=== PATIENT | male | born 1960 | race Caucasian/White ===

== ENCOUNTER 2016-09-04 09:05 | Emergency (ER) | payer MEDICARE ==
[2016-09-04 10:12] LABS: ABSOLUTE BASOPHILS # (AUTO) 0.1 10^3/uL (0.0-0.2); ABSOLUTE EOSINOPHILS # (AUTO) 0.3 10^3/uL (0.0-0.6); ABSOLUTE LYMPHOCYTES (AUTO) 1.3 10^3/uL (0.5-4.7); ABSOLUTE MONOCYTES (AUTO) 0.8 10^3/uL (0.1-1.4); ABSOLUTE NEUT (AUTO) 7.1 10^3/uL (1.7-8.2); BASOPHILS % (AUTO) 0.9 % (0-2); EOSINOPHILS % (AUTO) 3.5 % (0-6); HEMATOCRIT 27.6 % (37.9-51.0); HEMOGLOBIN 9.1 g/dL (13.5-17.0); HGB HCT DIFFERENCE -0.3; LYMPHOCYTES % (AUTO) 13.7 % (13-45); MEAN CORPUSCULAR HEMOGLOBIN 26.6 pg (27.0-33.4); MEAN CORPUSCULAR HGB CONC 32.9 g/dL (32.0-36.0); MEAN CORPUSCULAR VOLUME 81 fl (80-97); MONOCYTES % (AUTO) 8.7 % (3-13); RED BLOOD COUNT 3.42 10^6/uL (4.35-5.55); RED CELL DISTRIBUTION WIDTH 14.9 % (11.5-14.0); SEGMENTED NEUTROPHILS % (AUTO) 73.2 % (42-78); WHITE BLOOD COUNT 9.8 10^3/uL (4.0-10.5)
[2016-09-04 11:29] VITALS: BP 124/65
[2016-09-04 11:41] LABS: ALANINE AMINOTRANSFERASE 31 U/L (21-72); ALBUMIN 3.4 g/dL (3.5-5.0); ALKALINE PHOSPHATASE 485 U/L (38-126); ANION GAP 12 (5-19); ASPARTATE AMINO TRANSFERASE 21 U/L (17-59); BILIRUBIN,TOTAL 0.2 mg/dL (0.2-1.3); BLOOD UREA NITROGEN 19 mg/dL (7-20); CALCIUM 9.3 mg/dL (8.4-10.2); CARBON DIOXIDE 26 mmol/L (22-30); CHLORIDE 102 mmol/L (98-107); CREATININE RESULT 1.42 mg/dL (0.52-1.25); GLUCOSE 82 mg/dL (75-110); POTASSIUM 4.8 mmol/L (3.6-5.0); SODIUM 139.8 mmol/L (137-145); TOTAL PROTEIN 7.1 g/dL (6.3-8.2)
--- NOTE | 2016-09-04 12:18 | ER Document Report ---
ED General - General Chief Complaint: Shortness Of Breath Stated Complaint: SHORTNESS OF BREATH,DIZZY Mode of Arrival: Ambulatory Notes: 56 yr old male who was noted ot have anemia transfused on friday presents with complaitns of continued weakness. pt denies any blood in stool or vomit. denies any fevers or chills. Patient was given 1 unit and noted to have a hemoglobin 7.7 patient had colonoscopy 6 years ago which noted a small ulcer TRAVEL OUTSIDE OF THE [place] IN LAST 30 DAYS: No - HPI Onset: Last week Onset/Duration: Persistent Quality of pain: No pain Severity: Mild Pain Level: Denies Associated symptoms: Weakness Exacerbated by: Denies Relieved by: Denies Similar symptoms previously: Yes Recently seen / treated by doctor: Yes - Related Data Allergies/Adverse Reactions: azithromycin [Azithromycin] Allergy (Intermediate, Verified 09/04/16 09:12) Home Medications: Current Home Medications Acetaminophen [Tylenol Extra Strength] 500 mg PO Q4HP PRN 09/04/16 [History] Ascorbic Acid [Vitamin C 500 mg Tablet] 500 mg PO DAILY 09/04/16 [History] Bupropion HCl [Wellbutrin Xl 300mg 24hr Tablet] 300 mg PO DAILY 09/04/16 [ History] Cholecalciferol (Vitamin D3) [Vitamin D3 2000 unit Tablet] 2,000 unit PO DAILY 09/04/16 [History] Diclofenac Sodium [Voltaren] 1 applic TOP DAILY 09/04/16 [History] Docusate Sodium [Colace 100 mg Capsule] 100 mg PO BID 09/04/16 [History] Gabapentin [Neurontin 100 mg Capsule] 200 mg PO QHS 09/04/16 [History] Hydrocodone/Acetaminophen [Vera 7.5-325 mg Tablet] 1 tab PO Q6HP PRN 09/04/16 [ History] Insulin Aspart [Novolog Insulin (Aspart) 100 unit/mL] 0 units PUMP ASDIR PRN 12/16 [History] Levothyroxine Sodium 125 mcg PO DAILY 09/04/16 [History] Losartan Potassium [Cozaar 50 mg Tablet] 50 mg PO DAILY 09/04/16 [History] Metoclopramide HCl [Reglan 10 mg Tablet] 10 mg PO BID 09/04/16 [History] Ondansetron HCl [Zofran 8 mg Tablet] 8 mg PO TIDP PRN 09/04/16 [History] Pantoprazole Sodium [Protonix] 40 mg PO DAILY 09/04/16 [History] Ropinirole HCl [Requip] 0.5 mg PO QHS 09/04/16 [History] Sildenafil Citrate [Sildenafil] 20 mg PO ASDIR PRN 09/04/16 [History] Venlafaxine HCl [Venlafaxine HCl ER] 150 mg PO DAILY 09/04/16 [History] Zinc 50 mg PO DAILY 09/04/16 [History] Zolpidem Tartrate 10 mg PO HSP PRN 09/04/16 [History] Past Medical History - Social History Smoking Status: Current Every Day Smoker Cigarette use (# per day): No Chew tobacco use (# tins/day): No Smoking Education Provided: No Frequency of alcohol use: None Drug Abuse: None Family History: Reviewed & Not Pertinent Patient has suicidal ideation: No Patient has homicidal ideation: No - Past Medical History Cardiac Medical History: Reports: Hx Hypertension Endocrine Medical History: Reports: Hx Diabetes Mellitus Type 1 Psychiatric Medical History: Denies: Hx Depression Past Surgical History: Reports: Hx Appendectomy, Hx Orthopedic Surgery - L foot - Immunizations Hx Diphtheria, Pertussis, Tetanus Vaccination: Yes Review of Systems - Review of Systems Notes: REVIEW OF SYSTEMS: CONSTITUTIONAL : Denies fever, chills, or sweats. Denies recent illness. EENT: Denies eye, ear, throat, or mouth pain or symptoms. Denies nasal or sinus congestion or discharge. Denies throat, tongue, or mouth swelling or difficulty swallowing. CARDIOVASCULAR: Denies chest pain. Denies palpitations or racing or irregular heart beat. Denies ankle edema. RESPIRATORY: Denies cough, cold, or chest congestion. Denies shortness of breath, difficulty breathing, or wheezing. GASTROINTESTINAL: Denies abdominal pain or distention. Denies nausea, vomiting , or diarrhea. Denies blood in vomitus, stools, or per rectum. Denies black, tarry stools. Denies constipation. GENITOURINARY: Denies difficulty urinating, painful urination, burning, frequency, blood in urine, or discharge. MUSCULOSKELETAL: Denies back or neck pain or stiffness. Denies joint pain or swelling. SKIN: Denies rash, lesions or sores. HEMATOLOGIC : Denies easy bruising or bleeding. LYMPHATIC: Denies swollen, enlarged glands. NEUROLOGICAL: Admits weakness PSYCHIATRIC: Denies anxiety or stress. Denies depression, suicidal ideation, or homicidal ideation. ALL OTHER SYSTEMS REVIEWED AND NEGATIVE. Dictation was performed using [employer] voice recognition software PHYSICAL EXAMINATION: GENERAL: Well-appearing, well-nourished and in no acute distress. HEAD: Atraumatic, normocephalic. EYES: Pupils equal round and reactive to light, extraocular movements intact, sclera anicteric, conjunctiva are normal. ENT: Nares patent, oropharynx clear without exudates. Moist mucous membranes. NECK: Normal range of motion, supple without lymphadenopathy LUNGS: Breath sounds clear to auscultation bilaterally and equal. No wheezes rales or rhonchi. HEART: Regular rate and rhythm without murmurs ABDOMEN: Soft, nontender, nondistended abdomen. No guarding, no rebound. No masses appreciated. Hemoccult positive Musculoskeletal: left foot amputation, tender ot palpation i nthe lumbar region midline NEUROLOGICAL: Cranial nerves grossly intact. Normal speech, normal gait. Normal sensory, motor exams PSYCH: Normal mood, normal affect. SKIN: Warm, Dry, normal turgor, no rashes or lesions noted. Physical Exam - Vital signs Vitals: Pulse Ox 100 09/04/16 07:05 Course - Re-evaluation Re-evalutation: 09/04/16 15:18 I believe patient's symptoms today are secondary to acute blood loss anemia,, since he was transfused and his hemoglobin is now stable. Patient is not vomiting, he is on Protonix I will start him on Pepcid. Patient will be given follow-up with GI specialist. I do not believe he needs admission at this time I had a very long conversation with the family and explained this to them. I have To them that they must return immediately if they do not have a GI follow-up Family is happy with plan. Imaging of the abdomen did note a run through L4 transverse process fracture After performing a Medical Screening Examination, I estimate there is LOW risk for ACUTE APPENDICITIS, BOWEL OBSTRUCTION, ACUTE CHOLECYSTITIS, PERFORATED DIVERTICULITIS, INCARCERATED HERNIA, PANCREATITIS, or PERFORATED ULCER, thus I consider the discharge disposition reasonable. Also, there is no evidence or peritonitis, sepsis, or toxicity. The patient and I have discussed the diagnosis and risks, and we agree with discharging home with close follow-up with the understanding that symptoms and presentations can change. We also discussed returning to the Emergency Department immediately if new or worsening symptoms occur. We have discussed the symptoms which are most concerning (e.g., bloody stool, fever, changing or worsening pain, intractable vomiting - standard verbal up date) that necessitate immediate return. - Vital Signs Vital signs: Temp Pulse Resp BP Pulse Ox 98.2 F 112 H 17 124/65 96 09/04/16 09:18 09/04/16 09:18 09/04/16 11:01 09/04/16 11:01 09/04/16 11:01 - Laboratory Result Diagrams: 09/04/16 09:40 09/04/16 10:51 Laboratory results interpreted by me: 09/04/16 09/04/16 09:40 10:51 RBC 3.42 L Hgb 9.1 L Hct 27.6 L MCH 26.6 L RDW 14.9 H Plt Count 603 H Creatinine 1.42 H Est GFR (Non-Af Amer) 52 L Alkaline Phosphatase 485 H Albumin 3.4 L Discharge - Discharge Clinical Impression: L1-L4 fracture, Anemia associated with acute blood loss Condition: Stable Disposition: HOME, SELF-CARE Additional Instructions: Rectal Bleeding, Unclear Cause No definite cause has been found for the rectal bleeding you have experienced. Among the possible causes are internal or external hemorrhoids ( internal hemorrhoids can't be felt on the outside), an anal fissure (a crack at the anal ring), infections or inflammatory diseases of the colon, tumors or polyps, or diverticula (diverticula are outpouchings from the colon wall). To establish a cause for your bleeding (or at least make certain there is no serious problem such as a tumor), further evaluation will be necessary. This may include special X-rays, or passage of a scope up into the colon. Be sure to keep your follow-up appointment. Should you develop brisk bleeding, abdominal pain, fever, lightheadedness, or fever, call the doctor or return at once. Prescriptions: Famotidine [Pepcid 20 mg Tablet] 20 mg PO DAILY #30 tablet Referrals: [Primary Care Provider] - Follow up as needed JAMES DURAN MD [ACTIVE STAFF] - Follow up as needed ERICKA SCHOFIELD MD [ACTIVE STAFF] - Follow up as needed KANIKA MCCONNELL MD [ACTIVE STAFF] - Follow up as needed
== END 2016-09-04 11:01 | disposition home or self-care (01) ==
LOC: ER 09:05
DX: S32.019A Unspecified fracture of first lumbar vertebra, initial encounter for closed fracture (principal); S32.029A Unspecified fracture of second lumbar vertebra, initial encounter for closed fracture; S32.039A Unspecified fracture of third lumbar vertebra, initial encounter for closed fracture; S32.049A Unspecified fracture of fourth lumbar vertebra, initial encounter for closed fracture; D62 Acute posthemorrhagic anemia; R06.02 Shortness of breath; R42 Dizziness and giddiness; R53.1 Weakness; Z79.899 Other long term (current) drug therapy; Z79.4 Long term (current) use of insulin; F17.210 Nicotine dependence, cigarettes, uncomplicated; X58.XXXA Exposure to other specified factors, initial encounter
CPT/HCPCS: 36415; 74176; 80053; 82272; 85025; 86850; 86900; 86901; 99285

== ENCOUNTER → 2017-03-05 | Outpatient (CLI) | payer MEDICARE ==
[2017-03-05 13:25] LABS: ABSOLUTE BASOPHILS # (AUTO) 0.1 10^3/uL (0.0-0.2); ABSOLUTE EOSINOPHILS # (AUTO) 0.4 10^3/uL (0.0-0.6); ABSOLUTE LYMPHOCYTES (AUTO) 2.4 10^3/uL (0.5-4.7); ABSOLUTE MONOCYTES (AUTO) 0.6 10^3/uL (0.1-1.4); ABSOLUTE NEUT (AUTO) 3.8 10^3/uL (1.7-8.2); BASOPHILS % (AUTO) 0.8 % (0-2); EOSINOPHILS % (AUTO) 6.1 % (0-6); HEMATOCRIT 32.9 % (37.9-51.0); HEMOGLOBIN 10.7 g/dL (13.5-17.0); HGB HCT DIFFERENCE -0.8; LYMPHOCYTES % (AUTO) 33.3 % (13-45); MEAN CORPUSCULAR HEMOGLOBIN 26.5 pg (27.0-33.4); MEAN CORPUSCULAR HGB CONC 32.5 g/dL (32.0-36.0); MEAN CORPUSCULAR VOLUME 82 fl (80-97); RED BLOOD COUNT 4.03 10^6/uL (4.35-5.55); RED CELL DISTRIBUTION WIDTH 17.3 % (11.5-14.0); SEGMENTED NEUTROPHILS % (AUTO) 51.8 % (42-78); WHITE BLOOD COUNT 7.3 10^3/uL (4.0-10.5)
[2017-03-05 13:53] LABS: ALANINE AMINOTRANSFERASE 86 U/L (21-72); ALBUMIN 3.6 g/dL (3.5-5.0); ALKALINE PHOSPHATASE 171 U/L (38-126); ANION GAP 12 (5-19); ASPARTATE AMINO TRANSFERASE 62 U/L (17-59); BILIRUBIN,DIRECT 0.4 mg/dL (0.0-0.4); BILIRUBIN,TOTAL 0.4 mg/dL (0.2-1.3); BLOOD UREA NITROGEN 16 mg/dL (7-20); CALCIUM 8.7 mg/dL (8.4-10.2); CARBON DIOXIDE 25 mmol/L (22-30); CHLORIDE 105 mmol/L (98-107); CREATININE RESULT 1.45 mg/dL (0.52-1.25); GLUCOSE 102 mg/dL (75-110); POTASSIUM 5.1 mmol/L (3.6-5.0); SODIUM 141.5 mmol/L (137-145); TOTAL PROTEIN 8.1 g/dL (6.3-8.2)
[2017-03-05 14:04] LABS: ERYTHROCYTE SEDIMENTATION RATE 105 mm/hr (0-20)
--- NOTE | 2017-03-05 14:33 | RADIOLOGY REPORT (SQ) ---
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 TECHNIQUE: AP, lateral, and oblique radiographic images acquired of the left ankle. LIMITATIONS: None. FINDINGS: MINERALIZATION: Normal. BONES: There is fragmentation and sclerosis of the calcaneus at the posterior subtalar joint, tarsal bones and proximal metatarsals from Charcot foot. Periosteal new bone is seen along the distal metaphysis of the left tibia and fibula. There is a lateral malleolar soft tissue ulcer with radiopaque ointment. It is difficult to discern if there is bony resorption of the fibular tip deep to the ulcer and ointment. JOINTS: Charcot foot with fragmentation and slight lateral subluxation of the tarsal bones with respe ct to the distal tibia. SOFT TISSUES: Diffuse medial and lateral soft tissue swelling. Lateral malleolar soft tissue ulcer w ith radiopaque ointment. OTHER: No other significant finding. IMPRESSION: Charcot foot with slight lateral subluxation of the talus and calcaneal fragments with r espect to the distal tibia. Soft tissue ulcer over the lateral malleolus with radiopaque ointment. It is difficult to discern if there is underlying bony resorption. Periosteal new bone along the distal tibia and fibula metaphysis. TECHNICAL DOCUMENTATION: JOB ID: [id number] [employer]- All Rights Reserved
--- NOTE | 2017-03-05 14:38 | RADIOLOGY REPORT (SQ) ---
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 TECHNIQUE: AP, lateral and oblique radiographic images acquired of the left foot. LIMITATIONS: None. FINDINGS: Charcot foot with fragments of sclerotic calcaneus talus tarsal bones and proximal metatar sals. Slight lateral subluxation of the talus fragment with respect to the tibia. There is diffuse soft tissue swelling, collapse of the plantar arch. No soft tissue gas. Radiopaque ointment is seen in a soft tissue ulcer over the distal fibula. It is difficult to discer n whether there is underlying bony erosion of the distal fibula. IMPRESSION: Left Charcot foot. Soft tissue ulcer over the distal fibular tip. TECHNICAL DOCUMENTATION: JOB ID: [id number] [employer]- All Rights Reserved
== END ==
LOC: WC 11:46
PROVIDERS: ATTEND Nurse Practitioner Family
DX: E11.621 Type 2 diabetes mellitus with foot ulcer (principal); L97.323 Non-pressure chronic ulcer of left ankle with necrosis of muscle
CPT/HCPCS: 36415; 80053; 83036; 85025; 85652; 86140

== ENCOUNTER → 2017-03-12 | Outpatient (CLI) | payer MEDICARE ==
--- NOTE | 2017-03-13 09:14 | RADIOLOGY REPORT (SQ) ---
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 Multiplanar images include fat sensitive s equences as T1, fluid sensitive sequences as FST2/STIR, cartilage sensitive sequences as FSPD, and gr adient echo sequences. LIMITATIONS: None. FINDINGS: BONE MARROW: Diffuse marrow edema throughout the distal tibial metaphysis, distal fibular metaphysis, anterior edge of the calcaneus, and in the base of the 2nd and 3rd metatarsals. EFFUSIONS: Complete disruption and disorganization of the tibiotalar joint and subtalar joints. OSSEOUS ARTICULATIONS: Complete disruption and disorganization of the tibiotalar joint, subtalar join t, calcaneocuboid joint, and intertarsal joints. Bony resorption of the talus and anterior half of t he calcaneus, bony resorption of the tarsal navicular and cuboid bones. ACHILLES TENDON: Intact without partial or full-thickness tear. No adjacent bursal fluid or edema. TIBIALIS ANTERIOR TENDON: Grossly intact TIBIALIS POSTERIOR TENDON: Grossly intact FLEXOR HALLUCIS LONGUS AND FLEXOR DIGITORUM TENDONS: Grossly intact flexor hallucis tendon. Flexor d igitorum tendons not well seen PERONEUS LONGUS AND BREVIS TENDON: Rand brevis distal to the lateral malleolus is not visualized. Diffuse high signal throughout the distal peroneus longus, distal to the lateral malleolus ATFL, CFL, PTFL: Not visualized DELTOID LIGAMENT: Not visualized TARSAL TUNNEL: Destroyed SINUS TARSI: Destroyed PLANTAR FASCIA: Medial band of the plantar fascia is still intact ADJACENT SOFT TISSUES: There is a lateral ankle soft tissue ulcer 4 cm in diameter at the level of th e distal tip lateral malleolus. Peroneal tendon sheath appears to be just deep to the ulcer. There is diffuse skin thickening and edema from diffuse cellulitis. No well circumscribed abscess cavity i s seen. OTHER: No other significant finding. IMPRESSION: Lateral malleolar soft tissue ulcer with diffuse cellulitis Advanced disorganization, fragmentation, and bony sclerosis of the hindfoot bones TECHNICAL DOCUMENTATION: JOB ID: [id number] [facility] [employer]- All Rights Reserved
== END ==
LOC: RAD 03-10 14:19
PROVIDERS: ATTEND Preventive Medicine Undersea and Hyperbaric Medicine
DX: L97.224 Non-pressure chronic ulcer of left calf with necrosis of bone (principal)

== ENCOUNTER → 2017-04-01 | Outpatient (CLI) | payer MEDICARE ==
[2017-04-01 13:24] LABS: CREATININE RESULT 1.38 mg/dL (0.52-1.25)
== END ==
LOC: OD 12:34
PROVIDERS: ATTEND Surgery Vascular Surgery
DX: Z51.81 Encounter for therapeutic drug level monitoring (principal); Z79.899 Other long term (current) drug therapy
CPT/HCPCS: 36415; 82565

== ENCOUNTER → 2018-01-13 | Outpatient (CLI) | payer MEDICARE ==
[2018-01-13 13:51] LABS: ANION GAP 16 (5-19); BLOOD UREA NITROGEN 18 mg/dL (7-20); CALCIUM 9.1 mg/dL (8.4-10.2); CARBON DIOXIDE 24 mmol/L (22-30); CHLORIDE 105 mmol/L (98-107); GLUCOSE 195 mg/dL (75-110); SODIUM 144.6 mmol/L (137-145)
== END ==
LOC: LAB 12:42
PROVIDERS: ATTEND Physician Assistant Surgical
DX: Z01.812 Encounter for preprocedural laboratory examination (principal); I70.90 Unspecified atherosclerosis; I10 Essential (primary) hypertension
CPT/HCPCS: 36415; 80048